=== PATIENT | male | born 1995 | race Caucasian/White ===

== ENCOUNTER 2023-06-08 16:57 | Emergency (ER) | payer MEDICAID ==
[~2023-06-08] VITALS: Ht 162.6 cm; Wt 81.0 kg
[2023-06-08 17:24] VITALS: TEMP 98
[2023-06-08 17:35] VITALS: BP 119/71; PULSE 65; RESP 17
[2023-06-08] MEDS ORDERED: IBUPROFEN 600 MG TABLET PO ONE (18:15)
[2023-06-08] MEDS ORDERED: IBUP-1492 PO (20:44)
[2023-06-08] MEDS ORDERED: HYDR-4723 PO (20:46)
== END 2023-06-08 20:49 | disposition home or self-care (01) ==
LOC: EMS 16:59
DX: S92.255A Nondisplaced fracture of navicular [scaphoid] of left foot, initial encounter for closed fracture (principal); X58.XXXA Exposure to other specified factors, initial encounter; Y93.66 Activity, soccer; Y92.89 Other specified places as the place of occurrence of the external cause; Y99.8 Other external cause status
CPT/HCPCS: 99283